=== PATIENT | female | born 1990 | race African-American/Black ===

== ENCOUNTER 2022-08-02 14:05 | Inpatient (IN) | payer OTHER ==
[2022-08-02] MEDS ORDERED: SODIUM CHLORIDE 0.9% 1,000 ML IV STA (14:30)
--- NOTE | 2022-08-02 14:38 | ED ---
Alcohol HPI - General Chief Complaint: Alcohol Stated Complaint: ETOH Time Seen by Provider: 08/02/22 14:07 Source: patient, EMS, RN notes reviewed Mode of arrival: EMS Limitations: no limitations - History of Present Illness Initial Comments: 32-year-old female presents emergency department via EMS from [place] for evaluation of INTOXICATION. Patient states she's been drinking 1/5 of liquor daily last a month. Patient severely intoxicated sent over here for evaluation. Patient otherwise has no other complaints. Patient does admit that she drank large amount of alcohol this morning. Patient denies current drug use denies any physical complaints - Related Data Allergies Allergy/AdvReac Type Severity Reaction Status Date / Time No Known Allergies Allergy Verified 08/02/22 14:14 Review of Systems ROS Statement: Those systems with pertinent positive or pertinent negative responses have been documented in the HPI. ROS Other: All systems not noted in ROS Statement are negative. Past Medical History Past Medical History: No Reported History History of Any Multi-Drug Resistant Organisms: None Reported Past Surgical History: No Surgical Hx Reported Smoking Status: Current every day smoker Past Alcohol Use History: Abuse Past Drug Use History: None Reported General Exam Limitations: no limitations General appearance: alert, in no apparent distress, appears intoxicated Head exam: Present: atraumatic, normocephalic, normal inspection Eye exam: Present: normal appearance, PERRL, EOMI. Absent: scleral icterus, conjunctival injection, periorbital swelling Neck exam: Present: normal inspection, full ROM. Absent: tenderness, meningismus, lymphadenopathy Respiratory exam: Present: normal lung sounds bilaterally. Absent: respiratory distress, wheezes, rales, rhonchi, stridor Cardiovascular Exam: Present: regular rate, normal rhythm, tachycardia, normal heart sounds. Absent: systolic murmur, diastolic murmur, rubs, gallop, clicks GI/Abdominal exam: Present: soft, normal bowel sounds. Absent: distended, tenderness, guarding, rebound, rigid Neurological exam: Present: alert Skin exam: Present: warm, dry, intact, normal color. Absent: rash Course Vital Signs 08/02/22 08/02/22 14:10 14:14 Temperature 98 F Pulse Rate 110 H 100 Respiratory 20 20 Rate Blood Pressure 119/84 130/60 O2 Sat by Pulse 98 98 Oximetry Medical Decision Making - Medical Decision Making Was pt. sent in by a medical professional or institution (JACKLYN Ponce, COMPUTER ANIMATOR, urgent care, hospital, or fpc...) When possible be specific @ -Sent in by [place] for evaluation Did you speak to anyone other than the patient for history (EMS, parent, family, police, friend...)? What history was obtained from this source @ -EMS provided information from [place] as patient is acutely intoxicated Did you review nursing and triage notes (agree or disagree)? Why? @ -I reviewed and agree with nursing and triage notes Were old charts reviewed (outside hosp., previous admission, EMS record, old EKG, old radiological studies, urgent care reports/EKG's, fpc records)? Report findings @ -No old charts were reviewed Differential Diagnosis (chest pain, altered mental status, abdominal pain women, abdominal pain men, vaginal bleeding, weakness, fever, dyspnea, syncope, headache, dizziness, GI bleed, back pain, seizure, CVA, palpatations, mental health, musculoskeletal)? @ -Alcohol intoxication, alcohol abuse EKG interpreted by me (3pts min.). @ -None X-rays interpreted by me (1pt min.). @ -None done CT interpreted by me (1pt min.). @ -None done U/S interpreted by me (1pt. min.). @ -None done What testing was considered but not performed or refused? (CT, X-rays, U/S, labs)? Why? @ -None What meds were considered but not given or refused? Why? @ -None Did you discuss the management of the patient with other professionals (professionals i.e. JACKLYN Ponce, COMPUTER ANIMATOR, lab, RT, psych nurse, director social welfare, converter operator, teacher, motor equipment commanding officer, child support case officer)? Give summary @ -[facility] physician for admission secondary to severe alcohol intoxication Was smoking cessation discussed for >3mins.? @ -No Was critical care preformed (if so, how long)? @ -No Were there social determinants of health that impacted care today? How? (Homelessness, low income, unemployed, alcoholism, drug addiction, transportation, low edu. Level, literacy, decrease access to med. care, fdc, rehab)? @ -No Was there de-escalation of care discussed even if they declined (Discuss DNR or withdrawal of care, Hospice)? DNR status @ -No What co-morbidities impacted this encounter? (DM, HTN, Smoking, COPD, CAD, Cancer, CVA, ARF, Chemo, Hep., AIDS, mental health diagnosis, sleep apnea, morbid obesity)? @ -None Was patient admitted / discharged? Hospital course, mention meds given and route, prescriptions, significant lab abnormalities, going to OR and other pertinent info. @ -Admitted patient's alcohol level is 519 patient will be admitted with CIWA, Ativan withdrawal protocol, close monitoring. Undiagnosed new problem with uncertain prognosis? @ -No Drug Therapy requiring intensive monitoring for toxicity (Heparin, Nitro, Insulin, Cardizem)? @ -No Were any procedures done? @ -No Diagnosis/symptom? @ -Alcohol intoxication Acute, or Chronic, or Acute on Chronic? @ -Acute Uncomplicated (without systemic symptoms) or Complicated (systemic symptoms)? @ -. Complicated Side effects of treatment? @ -No Exacerbation, Progression, or Severe Exacerbation? @ -No Poses a threat to life or bodily function? How? (Chest pain, USA, [place], pneumonia, PE, COPD, DKA, ARF, appy, cholecystitis, CVA, Diverticulitis, Homicidal, Suicidal, threat to staff... and all critical care pts) @ -No - Lab Data Result diagrams: 08/02/22 14:31 08/02/22 14:31 Lab Results 08/02/22 08/02/22 Range/Units 14:31 14:31 WBC 4.0 (3.8-10.6) k/uL RBC 3.89 (3.80-5.40) m/uL Hgb 12.5 (11.4-16.0) gm/dL Hct 37.5 (34.0-46.0) % MCV 96.3 (80.0-100.0) fL MCH 32.2 (25.0-35.0) pg MCHC 33.4 (31.0-37.0) g/dL RDW 13.9 (11.5-15.5) % Plt Count 180 (150-450) k/uL MPV 7.9 Neutrophils % 29 % Lymphocytes % 59 % Monocytes % 6 % Eosinophils % 1 % Basophils % 1 % Neutrophils # 1.2 L (1.3-7.7) k/uL Lymphocytes # 2.3 (1.0-4.8) k/uL Monocytes # 0.2 (0-1.0) k/uL Eosinophils # 0.1 (0-0.7) k/uL Basophils # 0.0 (0-0.2) k/uL Sodium 148 H (137-145) mmol/L Potassium 4.5 (3.5-5.1) mmol/L Chloride 109 H (98-107) mmol/L Carbon Dioxide 24 (22-30) mmol/L Anion Gap 15 mmol/L BUN 10 (7-17) mg/dL Creatinine 0.54 (0.52-1.04) mg/dL Est GFR (CKD-EPI)AfAm >90 (>60 ml/min/1.73 sqM) Est GFR (CKD-EPI)NonAf >90 (>60 ml/min/1.73 sqM) Glucose 123 H (74-99) mg/dL Calcium 8.4 (8.4-10.2) mg/dL Magnesium 1.7 (1.6-2.3) mg/dL Total Bilirubin 0.4 (0.2-1.3) mg/dL AST 172 H (14-36) U/L ALT 97 H (4-34) U/L Alkaline Phosphatase 52 (38-126) U/L Total Protein 8.1 (6.3-8.2) g/dL Albumin 4.5 (3.5-5.0) g/dL Lipase 194 (23-300) U/L Serum Alcohol mg/dL Disposition Clinical Impression: Alcoholic intoxication, Alcohol abuse Disposition: ADMITTED IP TO THIS HOSP Condition: Poor Referrals: None,Stated [Primary Care Provider] - 1-2 days Time of Disposition: 16:17
[2022-08-02 14:47] LABS: Basophils % (A) 1 %; Eosinophils # (A) 0.1 k/uL (0-0.7); Eosinophils % (A) 1 %; HCT 37.5 % (34.0-46.0); HGB 12.5 gm/dL (11.4-16.0); Lymphocytes # (A) 2.3 k/uL (1.0-4.8); Lymphocytes % (A) 59 %; MCH 32.2 pg (25.0-35.0); MCHC 33.4 g/dL (31.0-37.0); MCV 96.3 fL (80.0-100.0); Mean Platelet Volume 7.9; Monocytes # (A) 0.2 k/uL (0-1.0); Monocytes % (A) 6 %; Neutrophils # (A) 1.2 k/uL (1.3-7.7); Neutrophils % (A) 29 %; Platelet Count 180 k/uL (150-450); RBC 3.89 m/uL (3.80-5.40); RDW 13.9 % (11.5-15.5)
[2022-08-02 15:12] LABS: ALT 97 U/L (4-34); AST 172 U/L (14-36); African American GFR (CKD) >90 (>60 ml/min/1.73 sqM); Albumin 4.5 g/dL (3.5-5.0); Alkaline Phosphatase 52 U/L (38-126); Anion Gap 15 mmol/L; Blood Urea Nitrogen 10 mg/dL (7-17); Calcium 8.4 mg/dL (8.4-10.2); Carbon Dioxide 24 mmol/L (22-30); Chloride 109 mmol/L (98-107); Glucose 123 mg/dL (74-99); Lipase 194 U/L (23-300); Magnesium 1.7 mg/dL (1.6-2.3); Non-African American GFR(CKD) >90 (>60 ml/min/1.73 sqM); Sodium 148 mmol/L (137-145); Total Bilirubin 0.4 mg/dL (0.2-1.3); Total Protein 8.1 g/dL (6.3-8.2)
[2022-08-02 15:17] LABS: Potassium 4.5 mmol/L (3.5-5.1)
[2022-08-02 16:17] LABS: Alcohol 516 mg/dL
[2022-08-02] MEDS ORDERED: ONDANSETRON 4 MG/2 ML VIAL IVP PRN (16:17)
[2022-08-02] MEDS ORDERED: NALOXONE 0.4 MG/ML 1 ML VIAL IV PRN (16:17)
[2022-08-02] MEDS ORDERED: LORazepam 1 MG TAB PO PRN ×3 (16:18)
[2022-08-02] MEDS ORDERED: LORazepam 2 MG/ML INJ IV PRN (16:18)
[2022-08-02] MEDS ORDERED: LORazepam 0.5 MG TAB PO PRN (16:18)
[2022-08-02] MEDS: SODIUM CHLORIDE 0.9% 1,000 ML IV SCH ×2 (16:39→18:25)
--- NOTE | 2022-08-02 18:28 | P.HPIM ---
History of Present Illness H&P Date: 08/02/22 History of Presenting Illness: Patient is a very pleasant 32-year-old female with a past medical history of alcohol abuse and nicotine dependence. Per documentation in chart patient presented to the emergency department via EMS from [place] secondary to concerns of alcohol intoxication. Per documentation patient presented to [place] [facility] severely intoxicated and sent to the emergency department for evaluation. Patient reportedly admitting to drinking a minimum of a fifth of alcohol daily but reports drinking an excessive amount this morning prior to going to rehab. Patient underwent full evaluation in the emergency department. Labs were completed. CBC unremarkable. BMP revealing hypernatremia with sodium of 148 and hyperchloremia with chloride of 109. Liver profile revealing elevated AST of 172 and elevated ALT of 97 with alkaline phosphatase of 52. Blood alcohol level was 516. Patient severely intoxicated at time of assessment, swatting provider away mumbling incomprehensible words. Patient is maintaining her airway and awakens easily with tactile sensation, however again swings at or swats at staff to get them away and therefore unable to complete full ROS. Discussed clinical findings and laboratory analysis in detail with ED physician. Patient being admitted under our services to medical unit with telemetry. Review of systems: Information obtained from ED documentation and discussion with ED provider, secondary to patient's intoxicated state unable to complete full ROS at this time. Physical exam: Vital signs reviewed and stable. General: Nontoxic, no distress and appears stated age. Derm: Skin warm and dry, normal coloration for ethnicity. Patient with a couple of old scrapes to lower legs noted. Otherwise no obvious signs of bruising or injury noted upon physical examination. Head: Atraumatic, normocephalic and symmetric. No signs of bruising or injuries. Eyes: EOMs intact, no lid lag, and anicteric sclera. Pupils equal round and reactive. Pupil reflex intact. Mouth: no lip lesions, mucus membranes moist Cardiovascular: regular rate and rhythm with normal S1S2, no murmur, positive posterior tibial pulses bilaterally, and cap refill < 2 seconds. Lungs: Respirations even, regular, and unlabored on room air. Lungs CTA bilaterally, no rhonchi, no rales, no wheezing, and no accessory muscle usage. Patient independently maintaining airway. Abdominal: soft, nontender to palpation, no guarding, no appreciable organomegaly Ext: ROM intact. No gross muscle atrophy, no edema, no contractures Neuro/Psych: Patient intoxicated. swatting provider away mumbling i ncomprehensible words. Assessment and Plan of Care: Alcohol intoxication in an active alcoholic with blood alcohol level greater than 500 Elevated liver enzymes, secondary to alcohol abuse Hypernatremia, likely secondary to dehydration resulting from alcohol abuse Hyperchloremia, likely secondary to dehydration resulting from alcohol abuse Hypomagnesemia, likely secondary to dehydration resulting from alcohol abuse -Labs were completed and reviewed. CBC unremarkable. BMP revealing hypernatremia with sodium of 148 and hyperchloremia with chloride of 109. Liver profile revealing elevated AST of 172 and elevated ALT of 97 with alkaline phosphatase of 52. Hypomagnesemia. Blood alcohol level was 516. -Ordered stat blood hCG and reviewed results which were negative for . - Discussed clinical findings and laboratory analysis in detail with ED physician. -Patient being admitted under our services to medical/surgical unit with telemetry. -Order placed for monitoring of CIWA scores to and for patient to be medicated with Ativan 0.5 mg every 4 hours as needed for CIWA score of 4-5, Ativan 1 mg every 4 hours for CIWA score of 6-7, Ativan 2 mg every 3 hours CIWA score of 8- 9, and Ativan 2 mg every 2 hours forr CIWA score of 10 or greater. -Patient received 1 L bolus 0.9% normal saline in the ED and we will provide her with Continuous IV fluid hydration with 0.9% normal saline at 75 miles per hour. -Thiamine 100 mg daily, Multivitamin daily, and Folate 1 mg daily -Order placed for Seizure, fall, aspiration, and elopement precautions. -Urine drug screen to be completed, discussed with RN need for straight cath to obtain the previously ordered urine specimen for completion. -Magnesium 1.7. Order placed for replacement with magnesium sulfate 2 g IVPB and we will repeat magnesium level with a.m. labs for continued close monitoring of electrolytes and will continue to replace as needed. -Telemetry monitoring. The patient is admitted with an anticipated greater than 2 midnight stay for evaluation of alcohol intoxication with blood alcohol level greater than 500 CODE STATUS: Full code by default DVT prophylaxis: Lovenox Discussed with: ED provider Anticipated discharge date: Clinical course to determine Anticipated discharge place: Home versus return to [place] Patient was seen independently by Nurse Practitioner. This document was prepared using [employer] dictation software. Please allow for errors in chute greaser while rare they do occur. Travis Lala NP rendered care for this patient independently, reviewed the findings and plan as documented in the note above. I did not physically speak with or examine the patient on this date. Past Medical History Past Medical History: No Reported History History of Any Multi-Drug Resistant Organisms: None Reported Past Surgical History: No Surgical Hx Reported Smoking Status: Current every day smoker Past Alcohol Use History: Abuse Past Drug Use History: None Reported Medications and Allergies Allergies Allergy/AdvReac Type Severity Reaction Status Date / Time No Known Allergies Allergy Verified 08/02/22 14:14 Physical Exam Osteopathic Statement: *. No significant issues noted on an osteopathic structural exam other than those noted in the History and Physical/Consult. Vitals: Vital Signs Temp Pulse Resp BP Pulse Ox 08/02/22 16:40 70 20 120/60 96 08/02/22 16:14 78 16 104/56 96 08/02/22 15:14 70 20 103/56 98 08/02/22 14:14 100 20 130/60 98 08/02/22 14:10 98 F 110 H 20 119/84 98 Intake and Output 08/02/22 08/02/22 08/02/22 06:59 14:59 22:59 Other: Weight 71.668 kg Results CBC & Chem 7: 08/02/22 14:31 08/02/22 14:31 Labs: Abnormal Lab Results - Last 24 Hours (Table) 08/02/22 08/02/22 Range/Units 14:31 14:31 Neutrophils # 1.2 L (1.3-7.7) k/uL Sodium 148 H (137-145) mmol/L Chloride 109 H (98-107) mmol/L Glucose 123 H (74-99) mg/dL AST 172 H (14-36) U/L ALT 97 H (4-34) U/L Serum Alcohol 516 H* mg/dL
[2022-08-02] MEDS: MAGNESIUM SULFATE-D5W PMX 1 GM in DEXTROSE/WATER 1 100ML.BAG IVPB SCH ×2 (18:47→20:20)
[2022-08-02 19:46] LABS: Appearance,Urine Clear (Clear); Bilirubin,Urine Negative (Negative); Blood,Urine Large (Negative); Color,Urine Yellow; Glucose,Urine (UA) Negative (Negative); Ketones,Urine Negative (Negative); Leukocyte Esterase,Urine Negative (Negative); Mucus,Urine Rare /hpf; Nitrite,Urine Negative (Negative); PH, Urine 5.5 (5.0-8.0); Protein,Urine Trace (Negative); RBC,Urine >182 /hpf (0-5); Specific Gravity,Urine 1.018 (1.001-1.035); Squamous Epithelial Cell,Urine <1 /hpf (0-4); Urobilinogen,Urine <2.0 mg/dL (<2.0); WBC,Urine 2 /hpf (0-5)
[2022-08-02 19:50] LABS: Amphetamine Screen,Urine Not Detected (NotDetected); Barbiturate Screen,Urine Not Detected (NotDetected); Benzodiazepines Screen,Urine Not Detected (NotDetected); Cocaine Screen,Urine Not Detected (NotDetected); Methadone Screen, Urine Not Detected (NotDetected); Opiate Screen,Urine Not Detected (NotDetected); Oxycodone Screen, Urine Not Detected (NotDetected); Phencyclidine Screen,Urine Not Detected (NotDetected); Tricyclic Antidepressant,Urine Not Detected (NotDetected); Urn Cannabinoid Scrn Not Detected (NotDetected)
[2022-08-02] MEDS ORDERED: LORazepam 2 MG/ML INJ IV STA (22:43)
[2022-08-03] MEDS ORDERED: THIAMINE 100 MG/ML 2 ML VIAL IM STA (02:50)
[2022-08-03] MEDS ORDERED: LORazepam 2 MG/ML INJ IV PRN ×2 (02:50)
[2022-08-03] MEDS: PANTOPRAZOLE 40 MG/10 ML VIAL IV SCH (09:07)
[2022-08-03] MEDS: FOLIC ACID 1 MG TAB PO SCH (09:08)
[2022-08-03] MEDS: LORazepam 2 MG/ML INJ IV PRN ×3 (09:08→21:58)
[2022-08-03] MEDS: THIAMINE 100 MG TAB PO SCH (09:08)
[2022-08-03] MEDS: MULTIVITAMINS, THERA 1 EACH TAB PO SCH (09:08)
[2022-08-03] MEDS: ENOXAPARIN 40 MG/0.4 ML SYRINGE SQ SCH (09:08)
--- NOTE | 2022-08-03 11:23 | P.PN ---
Subjective Progress Note Date: 08/03/22 History of Presenting Illness: Patient is a very pleasant 32-year-old female with a past medical history of alcohol abuse and nicotine dependence. Per documentation in chart patient presented to the emergency department via EMS from [place] secondary to con cerns of alcohol intoxication. Per documentation patient presented to [place] severely intoxicated and sent to the emergency department for evaluation. Patient reportedly admitting to drinking a minimum of a fifth of alcohol daily but reports drinking an excessive amount this morning prior to going to rehab. Patient underwent full evaluation in the emergency department. Labs were completed. CBC unremarkable. BMP revealing hypernatremia with sodium of 148 and hyperchloremia with chloride of 109. Liver profile revealing elevated AST of 172 and elevated ALT of 97 with alkaline phosphatase of 52. Blood alcohol level was 516. Patient severely intoxicated at time of assessment, swatting provider away mumbling incomprehensible words. Patient is maintaining her airway and awakens easily with tactile sensation, however again swings at or swats at staff to get them away and therefore unable to complete full ROS. Discussed clinical findings and laboratory analysis in detail with ED physician. Patient was admitted under our services to medical unit with telemetry. Physical exam: Patient seen and fully evaluated at bedside this morning. CIWA score of 9 this morning at 9 AM and patient medicated accordingly. Patient currently alert and oriented to person, place, time, and situation. Patient answering questions appropriately. Patient does have active tremors noted. Patient denies having history of alcohol withdrawal seizures but reports that she cannot remember the last time she went greater than 24 hours without alcohol. Patient reports to drinking a minimum of a fifth of alcohol daily. Patient currently denies having any other complaints or pain at this time. Patient will not be clinically sober until approximately 3:30 PM. General: non toxic, no distress, appears at stated age Derm: warm, dry Head: atraumatic, normocephalic, symmetric Eyes: EOMI, no lid lag, anicteric sclera Mouth: no lip lesion, mucus membranes moist Cardiovascular: S1S2 reg, no murmur, positive posterior tibial pulse bilateral, Lungs: CTA bilateral, no rhonchi, no rales , no accessory muscle use Abdominal: soft, nontender to palpation, no guarding, no appreciable organomegaly Ext: no gross muscle atrophy, no edema, no contractures Neuro: CN II-XI grossly intact, no focal neuro deficits Psych: Alert, oriented, appropriate affect . Assessment and Plan of Care: Alcohol intoxication in an active alcoholic with blood alcohol level greater than 500 Elevated liver enzymes, secondary to alcohol abuse Hypernatremia, likely secondary to dehydration resulting from alcohol abuse Hyperchloremia, likely secondary to dehydration resulting from alcohol abuse Hypomagnesemia, likely secondary to dehydration resulting from alcohol abuse -Continue monitoring of CIWA scores to and for patient to be medicated with Ativan 0.5 mg every 4 hours as needed for CIWA score of 4-5, Ativan 1 mg every 4 hours for CIWA score of 6-7, Ativan 2 mg every 3 hours CIWA score of 8-9, and Ativan 2 mg every 2 hours forr CIWA score of 10 or greater. Currently CIWA score is 9 and patient has had a total of 5 mg of Ativan overnight. Initial alcohol level was 516. Patient will not be for approximately 3:30 PM. -Continue with gentle IV fluid hydration with 0.9% normal saline at 75 miles per hour. -Continue Thiamine 100 mg daily, Multivitamin daily, and Folate 1 mg daily -Continue Seizure, fall, aspiration, and elopement precautions. -Urine drug negative. -Telemetry monitoring. -Order placed for repeat CMP and magnesium for continued follow-up on electrolytes and will replace electrolyte abnormalities as needed. Will follow up on these results once available. -Discussed with social work and patient provided with information of inpatient substance abuse rehabilitation programs available and patient plans on discharge back to [facility] upon discharge. CODE STATUS: Full code DVT prophylaxis: Lovenox Discussed with: Patient, social work, and RN Anticipated discharge date: Clinical course to determine Anticipated discharge place: Home versus return to [facility] Patient was seen independently by Nurse Practitioner. This document was prepared using [employer] dictation software. Please allow for errors in hairmasters manager while rare they do occur. Travis Lala NP rendered care for this patient independently, reviewed the findings and plan as documented in the note above. I did not physically speak with or examine the patient on this date. Objective - Vital Signs Vital signs: Vital Signs Temp 98 F 08/03/22 01:09 Pulse 90 08/03/22 01:09 Resp 17 08/03/22 01:09 BP 110/73 08/03/22 01:09 Pulse Ox 98 08/03/22 01:09 FiO2 Intake & Output 08/02/22 08/03/22 08/03/22 18:59 06:59 18:59 Weight 71.668 kg 71.668 kg Other: Voiding Method Toilet # Voids 1 4 - Labs CBC & Chem 7: 08/02/22 14:31 08/03/22 14:44 Labs: Abnormal Lab Results - Last 24 Hours (Table) 08/02/22 08/02/22 08/02/22 Range/Units 14:31 14:31 18:44 Neutrophils # 1.2 L (1.3-7.7) k/uL Sodium 148 H (137-145) mmol/L Chloride 109 H (98-107) mmol/L Glucose 123 H (74-99) mg/dL AST 172 H (14-36) U/L ALT 97 H (4-34) U/L Urine Protein Trace H (Negative) Urine Blood Large H (Negative) Urine RBC >182 H (0-5) /hpf Urine Mucus Rare H (None) /hpf Serum Alcohol 516 H* mg/dL
[2022-08-03 15:15] LABS: ALT 74 U/L (4-34); AST 121 U/L (14-36); African American GFR (CKD) >90 (>60 ml/min/1.73 sqM); Albumin 3.6 g/dL (3.5-5.0); Albumin/Globulin Ratio 1.2; Alkaline Phosphatase 47 U/L (38-126); Anion Gap 8 mmol/L; Blood Urea Nitrogen 10 mg/dL (7-17); Calcium 7.6 mg/dL (8.4-10.2); Carbon Dioxide 25 mmol/L (22-30); Chloride 103 mmol/L (98-107); Glucose 156 mg/dL (74-99); Magnesium 1.6 mg/dL (1.6-2.3); Non-African American GFR(CKD) >90 (>60 ml/min/1.73 sqM); Potassium 3.4 mmol/L (3.5-5.1); Sodium 136 mmol/L (137-145); Total Bilirubin 0.7 mg/dL (0.2-1.3); Total Protein 6.6 g/dL (6.3-8.2)
[2022-08-03] MEDS: SODIUM CHLORIDE 0.9% 1,000 ML IV SCH (16:16)
[2022-08-04 06:57] LABS: HCT 32.5 % (34.0-46.0); MCH 32.6 pg (25.0-35.0); MCHC 33.8 g/dL (31.0-37.0); MCV 96.4 fL (80.0-100.0); Mean Platelet Volume 8.5; Platelet Count 157 k/uL (150-450); RBC 3.37 m/uL (3.80-5.40); RDW 13.2 % (11.5-15.5); WBC 3.7 k/uL (3.8-10.6)
[2022-08-04] MEDS: FOLIC ACID 1 MG TAB PO SCH (10:04)
[2022-08-04] MEDS: ENOXAPARIN 40 MG/0.4 ML SYRINGE SQ SCH (10:04)
[2022-08-04] MEDS: SODIUM CHLORIDE 0.9% 1,000 ML IV SCH ×2 (10:04→21:28)
[2022-08-04] MEDS: THIAMINE 100 MG TAB PO SCH ×2 (10:05)
[2022-08-04] MEDS: MULTIVITAMINS, THERA 1 EACH TAB PO SCH (10:05)
[2022-08-04 10:08] LABS: ALT 71 U/L (4-34); AST 93 U/L (14-36); African American GFR (CKD) >90 (>60 ml/min/1.73 sqM); Albumin 3.7 g/dL (3.5-5.0); Albumin/Globulin Ratio 1.2; Alkaline Phosphatase 50 U/L (38-126); Anion Gap 11 mmol/L; Blood Urea Nitrogen 6 mg/dL (7-17); Calcium 7.9 mg/dL (8.4-10.2); Carbon Dioxide 23 mmol/L (22-30); Chloride 101 mmol/L (98-107); Globulin 3.1 g/dL; Glucose 82 mg/dL (74-99); Magnesium 1.6 mg/dL (1.6-2.3); Non-African American GFR(CKD) >90 (>60 ml/min/1.73 sqM); Potassium 3.6 mmol/L (3.5-5.1); Sodium 135 mmol/L (137-145); Total Bilirubin 0.9 mg/dL (0.2-1.3); Total Protein 6.8 g/dL (6.3-8.2)
[2022-08-04] MEDS: PANTOPRAZOLE 40 MG/10 ML VIAL IV SCH (10:40)
[2022-08-04] MEDS: LORazepam 2 MG/ML INJ IV PRN ×3 (10:50→18:00)
[2022-08-04] MEDS: diazePAM 5 MG TAB PO SCH ×2 (16:13→21:27)
[2022-08-04] MEDS: MAGNESIUM SULFATE-D5W PMX 1 GM in DEXTROSE/WATER 1 100ML.BAG IVPB SCH ×2 (16:17→17:56)
--- NOTE | 2022-08-04 16:17 | P.PN ---
Subjective Progress Note Date: 08/04/22 History of Presenting Illness: Patient is a very pleasant 32-year-old female with a past medical history of alcohol abuse and nicotine dependence. Per documentation in chart patient presented to the emergency department via EMS from [place] secondary to con cerns of alcohol intoxication. Per documentation patient presented to [place] [facility] severely intoxicated and sent to the emergency department for evaluation. Patient reportedly admitting to drinking a minimum of a fifth of alcohol daily but reports drinking an excessive amount this morning prior to going to rehab. Patient underwent full evaluation in the emergency department. Labs were completed. CBC unremarkable. BMP revealing hypernatremia with sodium of 148 and hyperchloremia with chloride of 109. Liver profile revealing elevated AST of 172 and elevated ALT of 97 with alkaline phosphatase of 52. Blood alcohol level was 516. Patient severely intoxicated at time of assessment, swatting provider away mumbling incomprehensible words. Patient is maintaining her airway and awakens easily with tactile sensation, however again swings at or swats at staff to get them away and therefore unable to complete full ROS. Discussed clinical findings and laboratory analysis in detail with ED physician. Patient was admitted under our services to medical unit with telemetry. Physical exam: Patient seen and fully evaluated at bedside this morning. CIWA score of 8 this morning at 9 AM and patient medicated accordingly. Patient currently alert and oriented to person, place, time, and situation. She has active tremors noted and reports feeling "horrible". General: non toxic, no distress, appears at stated age Derm: warm, dry Head: atraumatic, normocephalic, symmetric Eyes: EOMI, no lid lag, anicteric sclera Mouth: no lip lesion, mucus membranes moist Cardiovascular: S1S2 reg, no murmur, positive posterior tibial pulse bilateral, Lungs: CTA bilateral, no rhonchi, no rales , no accessory muscle use Abdominal: soft, nontender to palpation, no guarding, no appreciable organomegaly Ext: no gross muscle atrophy, no edema, no contractures Neuro: CN II-XI grossly intact, no focal neuro deficits. tremors present. Psych: Alert, oriented, appropriate affect . Assessment and Plan of Care: Alcohol intoxication in an active alcoholic with blood alcohol level greater than 500, currently with Elevated liver enzymes, secondary to alcohol abuse Hypernatremia, likely secondary to dehydration resulting from alcohol abuse Hyperchloremia, likely secondary to dehydration resulting from alcohol abuse Hypomagnesemia, likely secondary to dehydration resulting from alcohol abuse -Continue monitoring of CIWA scores to and for patient to be medicated with Ativan 0.5 mg every 4 hours as needed for CIWA score of 4-5, Ativan 1 mg every 4 hours for CIWA score of 6-7, Ativan 2 mg every 3 hours CIWA score of 8-9, and Ativan 2 mg every 2 hours forr CIWA score of 10 or greater. Currently CIWA score is 8 and patient has had a total of 4 mg of Ativan over the past 24 hours. Initial alcohol level was 516. -Order also placed for scheduled Valium 5 mg by mouth 3 times daily. -Continue with gentle IV fluid hydration with 0.9% normal saline at 75 miles per hour. -Continue Thiamine 100 mg daily, Multivitamin daily, and Folate 1 mg daily -Continue Seizure, fall, aspiration, and elopement precautions. -Morning labs reviewed. CBC showing leukopenia with WBC count of 3.7 and normocytic anemia with hemoglobin of 11.0. BMP showing sodium 135, potassium 3.6, chloride 101, and anion gap of 23. Magnesium was low at 1.[address] for 2 g magnesium sulfate IVPB for replacement. Liver enzymes remain elevated but improving with AST of 93, ALT is 71, an alkaline phosphatase of 50. -Continue Telemetry monitoring. -Order placed for repeat CMP and magnesium for continued follow-up on electrolytes and liver function and we will replace electrolyte abnormalities as needed. Will follow up on these results once available. CODE STATUS: Full code DVT prophylaxis: Lovenox Discussed with: Patient, patient's significant other at bedside, social work, and RN Anticipated discharge date: Clinical course to determine, likely within the next 24-[address]. [address]: Home versus return to [place] Patient was seen independently by Nurse Practitioner. This document was prepared using [employer] dictation software. Please allow for errors in box hinge and lock attacher while rare they do occur. I reviewed the documentation as provided by the MADISON above, who is the original author of this note. I agree with the documented assessment and plan, with the following changes: none Objective - Vital Signs Vital signs: Vital Signs Temp 98.3 F 08/04/22 07:17 Pulse 71 08/04/22 07:17 Resp 15 08/04/22 07:17 BP 157/97 08/04/22 07:17 Pulse Ox 97 08/04/22 07:17 FiO2 Intake & Output 08/03/22 08/04/22 08/04/22 18:59 06:59 18:59 Other: Voiding Method Toilet Bedside Commode # Voids 0 2 # Bowel Movements 0 - Labs CBC & Chem 7: 08/04/22 06:04 08/04/22 06:04 Labs: Abnormal Lab Results - Last 24 Hours (Table) 08/03/22 08/04/22 Range/Units 14:44 06:04 WBC 3.7 L (3.8-10.6) k/uL RBC 3.37 L (3.80-5.40) m/uL Hgb 11.0 L (11.4-16.0) gm/dL Hct 32.5 L (34.0-46.0) % Sodium 136 L (137-145) mmol/L Potassium 3.4 L (3.5-5.1) mmol/L Glucose 156 H (74-99) mg/dL Calcium 7.6 L (8.4-10.2) mg/dL AST 121 H (14-36) U/L ALT 74 H (4-34) U/L
[2022-08-05] MEDS: LORazepam 2 MG/ML INJ IV PRN (00:06)
[2022-08-05 08:22] VITALS: BP 143/88; PULSE 83; RESP 14; TEMP 97.8
[2022-08-05] MEDS: PANTOPRAZOLE 40 MG/10 ML VIAL IV SCH (08:29)
[2022-08-05] MEDS: diazePAM 5 MG TAB PO SCH (08:29)
[2022-08-05] MEDS: THIAMINE 100 MG TAB PO SCH ×2 (08:29→10:44)
[2022-08-05] MEDS: ENOXAPARIN 40 MG/0.4 ML SYRINGE SQ SCH (08:29)
[2022-08-05] MEDS: FOLIC ACID 1 MG TAB PO SCH (08:29)
[2022-08-05] MEDS: MULTIVITAMINS, THERA 1 EACH TAB PO SCH (08:29)
--- NOTE | 2022-08-05 09:59 | P.DS ---
Providers Date of admission: 08/02/22 16:26 Expected date of discharge: 08/05/22 Attending physician: Judi Ballesteros DO Primary care physician: Stated None Hospital Course: Discharge Diagnosis: Alcohol intoxication in an active alcoholic with blood alcohol level greater than 500 upon arrival. Patient underwent three-day hospitalization and was placed on CIWA protocol receiving symptom triggered medication management with benzodiazepines. Patient has received a total of 4 mg of Ativan over the past 24 hours and appears to be doing well. Patient reports her tremors have significantly improved and she currently denies having any complaints or concerns. Patient is medically stable for discharge at this time. Patient reports that she does plan on going to outpatient rehabilitation program upon discharge. Patient calling family and [place] at this time. Elevated liver enzymes, secondary to alcohol abuse, improving. Hypernatremia, likely secondary to dehydration resulting from alcohol abuse. Resolved with IV fluid hydration. Hyperchloremia, likely secondary to dehydration resulting from alcohol abuse. Resolved with IV fluid hydration. Hypomagnesemia, likely secondary to dehydration resulting from alcohol abuse. Replaced. Hospital Course: Patient is a very pleasant 32-year-old female with a past medical history of al cohol abuse and nicotine dependence. Per documentation in chart patient presented to the emergency department via EMS from [place] secondary to concerns of alcohol intoxication. Per documentation patient presented to [place] [facility] severely intoxicated and sent to the emergency department for evaluation. Patient reportedly admitting to drinking a minimum of a fifth of alcohol daily but reports drinking an excessive amount this morning prior to going to rehab. Patient underwent full evaluation in the emergency department. Labs were completed. CBC unremarkable. BMP revealing hypernatremia with sodium of 148 and hyperchloremia with chloride of 109. Liver profile revealing elevated AST of 172 and elevated ALT of 97 with alkaline phosphatase of 52. Blood alcohol level was 516. Patient severely intoxicated at time of assessment, swatting provider away mumbling incomprehensible words. Patient is maintaining her airway and awakens easily wi th tactile sensation, however again swings at or swats at staff to get them away and therefore unable to complete full ROS. Discussed clinical findings and laboratory analysis in detail with ED physician. Patient was admitted under our services to medical unit with telemetry. Patient underwent three-day hospitalization and was placed on CIWA protocol receiving symptom triggered medication management with benzodiazepines. Patient has received a total of 4 mg of Ativan over the past 24 hours and appears to be doing well. Patient reports her tremors have significantly improved and she currently denies having any complaints or concerns. Patient is medically stable for discharge at this time. Patient reports that she does plan on going to outpatient rehabilitation program upon discharge. Patient calling family and [place] at this time. Physical exam: General: non toxic, no distress, appears at stated age Derm: warm, dry Head: atraumatic, normocephalic, symmetric Eyes: EOMI, no lid lag, anicteric sclera Mouth: no lip lesion, mucus membranes moist Cardiovascular: S1S2 reg, no murmur, positive posterior tibial pulse bilateral, Lungs: CTA bilateral, no rhonchi, no rales , no accessory muscle use Abdominal: soft, nontender to palpation, no guarding, no appreciable organomegaly Ext: no gross muscle atrophy, no edema, no contractures Neuro: CN II-XI grossly intact, no focal neuro deficits. No tremors present. Psych: Alert, oriented, appropriate affect . A total of 31 minutes of time were spent preparing this complex discharge summary. Pt was discharged on 08/05/22 at 9:56 AM Patient was seen independently by Nurse Practitioner. This document was prepared using [employer] dictation software. Please allow for errors in business management associate while rare they do occur. I reviewed the documentation as provided by the MADISON above, who is the original author of this note. I agree with the documented assessment and plan, with the following changes: none Patient Condition at Discharge: Stable Plan - Discharge Summary Discharge Rx Participant: No New Discharge Prescriptions: New Multivitamins, Thera [Multivitamin (formulary)] 1 each PO DAILY 30 Days #30 tab Folic Acid 1 mg PO DAILY 30 Days #30 tab Thiamine [Vitamin B-1] 100 mg PO DAILY 30 Days #30 tab Discharge Medication List Folic Acid 1 mg PO DAILY 30 Days #30 tab 08/05/22 [Rx] Multivitamins, Thera [Multivitamin (formulary)] 1 each PO DAILY 30 Days #30 tab 08/05/22 [Rx] Thiamine [Vitamin B-1] 100 mg PO DAILY 30 Days #30 tab 08/05/22 [Rx] Follow up Appointment(s)/Referral(s): None,Stated [Primary Care Provider] - 1-2 days Discharge/Stand Alone Forms: Inp Substance Abuse Facilities Discharge Disposition: HOME SELF-CARE
== END 2022-08-05 13:21 | disposition home or self-care (01) | DRG 775 ==
LOC: EC 14:05 → 4SSUR 16:26
PROVIDERS: ADMIT Internal Medicine; ATTEND Internal Medicine
DX: F10.129 Alcohol abuse with intoxication, unspecified (principal); Y90.8 Blood alcohol level of 240 mg/100 ml or more; F17.200 Nicotine dependence, unspecified, uncomplicated; E87.0 Hyperosmolality and hypernatremia; R25.1 Tremor, unspecified; E87.8 Other disorders of electrolyte and fluid balance, not elsewhere classified; R74.01 Elevation of levels of liver transaminase levels; Z28.310 Unvaccinated for COVID-19
CPT/HCPCS: 36415; 80053; 80306; 80320; 81001; 83690; 83735; 84703; 85025; 85027; 96360; 96361; 99284